=== PATIENT | male | born 1970 | race Caucasian/White ===

== ENCOUNTER 2018-07-19 12:11 | Inpatient (IN) | payer OTHER ==
[2018-07-19 14:07] VITALS: BMI 19.8
--- NOTE | 2018-07-19 16:09 | HP ---
CIWA Score - Admission Criteria OASAS Guidelines: Admission for Medically Managed Detox: Requires at least one of the followin. CIWA greater than 12 2. Seizures within the past 24 hours 3. Delirium tremens within the past 24 hours 4. Hallucinations within the past 24 hours 5. Acute intervention needed for co occurring medical disorder 6. Acute intervention needed for co occurring psychiatric disorder 7. Severe withdrawal that cannot be handled at a lower level of care (continued vomiting, continued diarrhea, abnormal vital signs) requiring intravenous medication and/or fluids 8. Admission ROS S - HPI Chief Complaint: Here for a rehab admission- left detox hospital in [place] after a stay of 7 days when he got tapering doses of methadone and librium. Was transferred here directly from detox. Pt without medical problems and does not take any medications. Smokes a pack per day. In past was on Abilify but has not taken for several weeks. 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 Uses 10 bags/day of injecting heroin and 3-4 pints of vodka a day. Has been on Suboxone occasionally does like this, prefers methadone. Would like to be in a methadone program Urine tox: pos for benzo and THC (from before admission to detox) ISTOP/DUR: shows Buprenorphine SL 8mg on 06/09/18: 14 pills and suboxone 15 pills on 05/02/18 Allergies/Adverse Reactions: Allergies Allergy/AdvReac Type Severity Reaction Status Date / Time No Known Allergies Allergy Verified 07/19/18 15:32 - Ebola screening Have you traveled outside of the country in the last 21 days: No Have you had contact with anyone from an Ebola affected area: No Have you been sick,other than usual withdrawal symptoms: No Do you have a fever: No Patient History - Patient Medical History Hx Asthma: No Hx Chronic Obstructive Pulmonary Disease (COPD): No Hx Cardiac Disorders: No Hx Hypertension: No Hx Hypercholesterolemia: No Hx Pacemaker: No HX Cerebrovascular Accident: No Hx Seizures: No Hx Dementia: No Hx Diabetes: No Hx Gastrointestinal Disorders: No Hx Liver Disease: No Hx Genitourinary Disorders: No Hx Sexually Transmitted Disorders: No Hx Renal Disease (ESRD): No Hx Thyroid Disease: No Hx Human Immunodeficiency Virus (HIV): No Hx Hepatitis C: No Hx Depression: No Hx Suicide Attempt: No Hx Bipolar Disorder: No Hx Schizophrenia: No - Patient Surgical History Past Surgical History: Yes Hx Neurologic Surgery: No Hx Cataract Extraction: No Hx Cardiac Surgery: No Hx Lung Surgery: No Hx Breast Surgery: No Hx Breast Biopsy: No Hx Abdominal Surgery: No Hx Appendectomy: No Hx Cholecystectomy: No Hx Genitourinary Surgery: No Hx Section: Yes (LEFT HIP REPLACEMENT) Hx Orthopedic Surgery: No Anesthesia Reaction: No - PPD History Previous Implant?: No Implanted On Prior [facility] Admission?: No - Reproductive History Patient : No - Smoking Cessation Smoking history: Former smoker Have you smoked in the past 12 months: Yes Aproximately how many cigarettes per day: 20 Hx Chewing Tobacco Use: No Initiated information on smoking cessation: Yes 'Breaking Loose' booklet given: 07/19/18 - Substance & Tx. History Hx Alcohol Use: Yes (3-4 pints of vodka a day) Hx Substance Use: Yes (10 bags IV heroin) Substance Use Type: Heroin Hx Substance Use Treatment: Yes (just completed detox) - Substances Abused Alcohol Route: Oral Frequency: Daily Amount used: 3-4 pints of vodka Age of first use: 12 Date of Last Use: 07/11/18 Heroin Route: Injection Frequency: Daily Amount used: 10 bags Age of first use: 24 Date of Last Use: 07/11/18 Family Disease History - Family Disease History Family History: Unable to Obtain Family Disease History: CA: Grandparent, Father Admission Physical Exam BHS - Vital Signs Vital Signs: Vital Signs - 24 hr 07/19/18 14:05 Temperature 98.4 F Pulse Rate 65 Respiratory 19 Rate Blood Pressure 99/67 BHS Breath Alcohol Content Breath Alcohol Content: 0 Urine Drug Screen - Results Drug Screen Negative: No Urine Drug Screen Results: THC-Marijuana, BZO-Benzodiazepines Inpatient Rehab Admission - Initial Determination Are CD services needed?: Yes Free of communicable disease: Yes Not in need of hospitalization: Yes - Rehab Admission Criteria Previous failed treatment: Yes Poor recovery environment: Yes Comorbidities: Yes Lacks judgement: No Patient is meeting Inpatient Rehab admission criteria:: Yes
[2018-07-19] MEDS ORDERED: LOPERAMIDE HCL 2 MG CAPSULE PO PRN (16:34)
[2018-07-19] MEDS ORDERED: MENTHOL/PHENOL 1 EACH UD MM PRN (16:34)
[2018-07-19] MEDS ORDERED: MAGNESIUM HYDROX 2400MG/30ML ORAL SUSPENSION 30 ML CUP PO PRN (16:34)
[2018-07-19] MEDS ORDERED: MAGNESIUM CITRATE 300 ML BOTTLE PO PRN (16:34)
[2018-07-19] MEDS ORDERED: P-EPHED 60MG/TRIPROLIDI 2.5MG TABLET PO PRN (16:34)
[2018-07-19] MEDS ORDERED: guaiFENesin/D-METHORPHAN HB 10 ML UNIT-DOSE CUPS PO PRN (16:34)
[2018-07-19] MEDS ORDERED: MAG HYDROX/AL HYDROX/SIMETH 30 ML UNIT-DOSE CUP PO PRN (16:34)
[2018-07-19] MEDS ORDERED: ACETAMINOPHEN 325 MG TABLET (FP) PO PRN (16:34)
[2018-07-19] MEDS ORDERED: TUBERCULIN PPD 5 TU/0.1ML VIAL ID ONE (18:49)
[2018-07-19] MEDS: THIAMINE HCL 100 MG TABLET (FP) PO SCH (21:40)
[2018-07-19] MEDS: MELATONIN 5 MG TABLETS PO PRN (21:40)
[2018-07-19 22:23] LABS: URINE APPEARANCE CLEAR; URINE BILIRUBIN NEGATIVE (<2.0 mg/dL); URINE COLOR LTYELLOW; URINE GLUCOSE (UA) NEGATIVE (NEGATIVE); URINE KETONE NEGATIVE (NEGATIVE); URINE LEUK ESTERASE NEGATIVE (NEGATIVE); URINE NITRITE NEGATIVE (NEGATIVE); URINE PROTEIN NEGATIVE (NEGATIVE); URINE UROBILINOGEN NEGATIVE mg/dL (0.2-1.0)
--- NOTE | 2018-07-20 08:17 | HP ---
Psychiatrist Admission - Data Date of interview: 07/20/18 Admission source: [facility] detox Identifying data: This is the first [facility] admission for this 48 years old male, unemployed on SSD, homeless Medical History: Significant for history orthosurgery for left hip replacement. Denies having psoriasis or colon resection for colon cancer as reported on [facility] nursing note. Smokes cigarettes 1 ppd Psychiatric History: Initially denies history of previous psychiatric treatment. However upon confrontation with information viewed in [facility] history & physical "in the past was on Abilify but has not taken it for weeks", he admitted that he received psychiatric outpatient treatment at [facility] in 2012, was diagnosed with Bipolar Disorder and he was treated with Abilify 10 mg/day. Told bond writer that he took medication for a few months. He is unwilling to resume taking that medication or be on other psychotropic medication at this time. Denies previous psychiatric hospitalization or suicidal attempt. At present, patient is highly irritable, hostile and reports sleeping poorly Physical/Sexual Abuse/Trauma History: Denies history of emotional, physical or sexual abuse as well as DV relationship. No service Additional Comment: Reports history of one previous misdemeanor arrests. No probation currently Vital Signs: Vital Signs - 24 hr 07/19/18 07/19/18 07/20/18 14:05 22:56 01:36 Temperature 98.4 F 97.6 F Pulse Rate 65 76 Respiratory 19 16 18 Rate Blood Pressure 99/67 102/67 07/20/18 07/20/18 03:30 07:25 Temperature 97.2 F L Pulse Rate 70 Respiratory 18 18 Rate Blood Pressure 112/75 Allergies/Adverse Reactions: Allergies Allergy/AdvReac Type Severity Reaction Status Date / Time No Known Allergies Allergy Verified 07/19/18 15:32 Date of last physical exam: 07/19/18 Concur with the findings of this exam: Yes - Substance Abuse/Tx History Hx Alcohol Use: Yes Hx Substance Use: Yes Substance Use Type: Alcohol (Started using heroin at age 12, consumes 3-4 pints of vodka daily. Last drank on 07/11/18), Heroin (Started using heroin at age 24, consumes 10 bags daily. Last used on 07/11/18) Hx Substance Use Treatment: Yes (3 previous inpt detox & 2 inpt rehab admissions ) Mental Status Exam - Mental Status Exam Alert and Oriented to: Time, Place, Person Cognitive Function: Fair Patient Appearance: Well Groomed Mood: Irritable (highly) Affect: Appropriate Patient Behavior: Cooperative (superficially) Speech Pattern: Clear Voice Loudness: Normal Thought Process: Intact Thought Disorder: Not Present Hallucinations: Denies Suicidal Ideation: Denies Homicidal Ideation: Denies Insight/Judgement: Fair Sleep: Poorly Appetite: Good Muscle strength/Tone: Normal Gait/Station: Normal Psychiatric Findings - Problem List ([place] 1, 2,3) (1) Alcohol dependence Current Visit: Yes Status: Acute (2) Opioid dependence Current Visit: Yes Status: Acute (3) Nicotine dependence Current Visit: Yes Status: Chronic (4) Mood disorder Current Visit: Yes Status: Chronic (5) Bipolar disorder Current Visit: Yes Status: Ruled-out (6) Substance induced mood disorder Current Visit: Yes Status: Acute (7) Substance-induced sleep disorder Current Visit: Yes Status: Acute - Initial Treatment Plan Initial Treatment Plan: 1) Start Melatonin 10 mg po HS prn for insomnia. 2) Monitor progress
--- NOTE | 2018-07-20 08:55 | EKG ---
Test Reason : Blood Pressure : / mmHG Vent. Rate : 062 BPM Atrial Rate : 062 BPM P-R Int : 106 ms QRS Dur : 088 ms QT Int : 428 ms P-R-T Axes : 069 079 059 degrees QTc Int : 434 ms SINUS RHYTHM WITH SHORT SD NO PREVIOUS ECGS AVAILABLE Confirmed by JUN RAMIREZ MD ([id number]) on 07/20/2018 8:54:53 AM Referred By: Confirmed By:JUN RAMIREZ MD
[2018-07-20 10:04] LABS: HEMOGLOBIN 12.9 GM/dL (11.7-16.9); MCH 27.4 pg (25.7-33.7); MCHC 31.4 g/dl (32.0-35.9); MEAN CELL VOLUME 87.5 fl (80-96); MEAN PLT VOLUME 8.3 fl (7.5-11.1); PLATELET COUNT 267 K/MM3 (134-434); RBC 4.69 M/mm3 (4.00-5.60); RDW 16.8 % (11.9-15.9); WHITE BLOOD COUNT 10.4 K/mm3 (4.0-10.0)
[2018-07-20 10:37] LABS: ALK PHOS 90 U/L (45-117); ANION GAP 9 MMOL/L (8-16); BILIRUBIN,TOTAL 0.3 mg/dL (0.2-1); BLOOD UREA NITROGEN 17 mg/dL (7-18); CALCIUM 8.4 mg/dL (8.5-10.1); CHLORIDE 107 mmol/L (98-107); CO2 23 mmol/L (21-32); CREATININE 0.9 mg/dL (0.55-1.3); GLUCOSE,RANDOM 161 mg/dL (74-106); POTASSIUM 3.7 mmol/L (3.5-5.1); SGOT/AST 50 U/L (15-37); SGPT/ALT 78 U/L (13-61); SODIUM 139 mmol/L (136-145); TOT PROT 6.7 g/dl (6.4-8.2)
[2018-07-20] MEDS: PRENATAL VITAMINS W/ FOLIC ACID TABLET (FP) PO SCH (10:53)
[2018-07-20] MEDS: NICOTINE 21 MG/24 HOURS TOPICAL PATCH TD SCH (10:53)
--- NOTE | 2018-07-20 14:34 | HP ---
COWS - Scale Resting Pulse: 0= [place] 80 or Below Sweatin= Chills/Flushing Restless Observation: 0= Sits Still Pupil Size: 0= Normal to Room Light Bone or Joint Aches: 4=Acute Joint/Muscle Pain Runny Nose/ Eye Tearin= Runny Nose/Eyes GI Upset > 30mins: 0= None Tremor Observation: 1= Tremor [place], Not Seen Yawning Observation: 1= 1-2x During Session Anxiety or Irritability: 1=Feels Anxious/Irritable Goose Flesh Skin: 0=Smooth Skin COWS Score: 10 CIWA Score - Admission Criteria OASAS Guidelines: Admission for Medically Managed Detox: Requires at least one of the followin. CIWA greater than 12 2. Seizures within the past 24 hours 3. Delirium tremens within the past 24 hours 4. Hallucinations within the past 24 hours 5. Acute intervention needed for co occurring medical disorder 6. Acute intervention needed for co occurring psychiatric disorder 7. Severe withdrawal that cannot be handled at a lower level of care (continued vomiting, continued diarrhea, abnormal vital signs) requiring intravenous medication and/or fluids 8. Admission ROS [facility] Chief Complaint: PT REQUESTING FOR SUBOXONE MAINTENANCE TREATMENT. Allergies/Adverse Reactions: Allergies Allergy/AdvReac Type Severity Reaction Status Date / Time No Known Allergies Allergy Verified 07/19/18 15:32 History of Present Illness: 48 Y/O MALE WITH A HX OF ALCOHOL, HEROIN AND MARIJUANA DEPENDENCE SEEKING SUBOXONE TX. PT HAS PREVIOUS EXPERIENCE WITH SUBOXONE TREATMENT, LAST POSTING ON ISTOP WAS ON 06/09/18 AND PT CONFIRMED AFTER WHICH PT REPORTS HE RELAPSED. PT REPORTS HE USED TO RECIEVE SUBOXONE TREATMENT WITH THE SNF IN [place], [place]. PT WILL LIKE TO GET BACK ON IT AND REFERRED BACK TO THE PROGRAM. (SEE PMHx,PPSYCHx AND SXHx SECTIONS HERE). PT DENIES PMHx AND PSYCHx. REPORTS LEFT HIP REPLACEMENT IN 2014. PT WAS ADMITTED TO REHAB YESTERDAY AFTER DETOXING AT [facility] AND DISCHARGED YESTERDAY. LAST DOSED WITH 5 MG OF METHADONE ON . - Ebola screening Have you traveled outside of the country in the last 21 days: No Have you had contact with anyone from an Ebola affected area: No Have you been sick,other than usual withdrawal symptoms: No Do you have a fever: No - Review of Systems Constitutional: Chills, Diaphoresis Musculoskeletal: reports: Muscle Pain Patient History - Patient Medical History Hx Anemia: No Hx Asthma: No Hx Chronic Obstructive Pulmonary Disease (COPD): No Hx Cardiac Disorders: No Hx Hypertension: No Hx Hypercholesterolemia: No Hx Pacemaker: No HX Cerebrovascular Accident: No Hx Seizures: No Hx Dementia: No Hx Diabetes: No Hx Gastrointestinal Disorders: No Hx Liver Disease: No Hx Genitourinary Disorders: No Hx Sexually Transmitted Disorders: No Hx Renal Disease (ESRD): No Hx Thyroid Disease: No Hx Human Immunodeficiency Virus (HIV): No Hx Hepatitis C: No Hx Depression: No Hx Suicide Attempt: No Hx Bipolar Disorder: No Hx Schizophrenia: No - Patient Surgical History Past Surgical History: Yes Hx Neurologic Surgery: No Hx Cataract Extraction: No Hx Cardiac Surgery: No Hx Lung Surgery: No Hx Breast Surgery: No Hx Breast Biopsy: No Hx Abdominal Surgery: No Hx Appendectomy: No Hx Cholecystectomy: No Hx Genitourinary Surgery: No Hx Section: Yes (LEFT HIP REPLACEMENT) Hx Orthopedic Surgery: No Anesthesia Reaction: No - PPD History Previous Implant?: No Implanted On Prior [facility] Admission?: No Date: 07/21/18 - Reproductive History Patient : No - Smoking Cessation Smoking history: Former smoker Have you smoked in the past 12 months: Yes Aproximately how many cigarettes per day: 20 Hx Chewing Tobacco Use: No Initiated information on smoking cessation: Yes - Substance & Tx. History Hx Alcohol Use: Yes Hx Substance Use: Yes Substance Use Type: Alcohol, Heroin, Marijuana Hx Substance Use Treatment: Yes ([facility]) - Substances Abused Alcohol Route: Oral Frequency: Daily Amount used: 3-4 pints of vodka Age of first use: 12 Date of Last Use: 07/11/18 Heroin Route: Injection Frequency: Daily Amount used: 10 bags Age of first use: 24 Date of Last Use: 07/11/18 Family Disease History - Family Disease History Family Disease History: CA: Grandparent, Father Admission Physical Exam BHS - Vital Signs Vital Signs: Vital Signs - 24 hr 07/19/18 07/20/18 07/20/18 22:56 01:36 03:30 Temperature 97.6 F Pulse Rate 76 Respiratory 16 18 18 Rate Blood Pressure 102/67 07/20/18 07:25 Temperature 97.2 F L Pulse Rate 70 Respiratory 18 Rate Blood Pressure 112/75 - Physical General Appearance: Yes: Irritable, Anxious HEENTM: Yes: EOMI, ULISES Neurological: Yes: Fully Oriented, Alert - Addiitonal Findings: START ON SUBOXONE 4 MG/1 MG SL TODAY RE-EVALUATE IF PER PATIENT SYMPTOMS BHS Breath Alcohol Content Breath Alcohol Content: 0 Urine Drug Screen - Results Drug Screen Negative: No Urine Drug Screen Results: THC-Marijuana, BZO-Benzodiazepines
[2018-07-20] MEDS: BUPRENORPHINE/NALOXONE 2 MG/0.5 MG FILM PACKET SL SCH (15:05)
[2018-07-20] MEDS: MELATONIN 5 MG TABLETS PO PRN (21:38)
[2018-07-20] MEDS: THIAMINE HCL 100 MG TABLET (FP) PO SCH (21:38)
[2018-07-21] MEDS: BUPRENORPHINE/NALOXONE 2 MG/0.5 MG FILM PACKET SL SCH (09:56)
[2018-07-21] MEDS: NICOTINE 21 MG/24 HOURS TOPICAL PATCH TD SCH (09:56)
[2018-07-21] MEDS: PRENATAL VITAMINS W/ FOLIC ACID TABLET (FP) PO SCH (09:56)
[2018-07-21] MEDS: NICOTINE POLACRILEX 2 MG GUM BUC PRN (12:24)
[2018-07-21] MEDS: MELATONIN 5 MG TABLETS PO PRN (21:31)
[2018-07-21] MEDS: THIAMINE HCL 100 MG TABLET (FP) PO SCH (21:31)
[2018-07-21] MEDS: IBUPROFEN 400 MG TABLET (FP) PO PRN (21:32)
[2018-07-22] MEDS: BUPRENORPHINE/NALOXONE 2 MG/0.5 MG FILM PACKET SL SCH (10:00)
[2018-07-22] MEDS: NICOTINE 21 MG/24 HOURS TOPICAL PATCH TD SCH (10:01)
[2018-07-22] MEDS: PRENATAL VITAMINS W/ FOLIC ACID TABLET (FP) PO SCH (10:02)
[2018-07-22] MEDS: NICOTINE POLACRILEX 2 MG GUM BUC PRN (10:08)
[2018-07-22] MEDS: THIAMINE HCL 100 MG TABLET (FP) PO SCH (21:35)
[2018-07-22] MEDS: MELATONIN 5 MG TABLETS PO PRN (21:35)
[2018-07-22] MEDS: IBUPROFEN 400 MG TABLET (FP) PO PRN (21:36)
[2018-07-23] MEDS: NICOTINE 21 MG/24 HOURS TOPICAL PATCH TD SCH (11:24)
[2018-07-23] MEDS: PRENATAL VITAMINS W/ FOLIC ACID TABLET (FP) PO SCH (11:25)
[2018-07-23] MEDS: BUPRENORPHINE/NALOXONE 2 MG/0.5 MG FILM PACKET SL SCH (11:25)
[2018-07-23] MEDS: NICOTINE POLACRILEX 2 MG GUM BUC PRN (12:22)
[2018-07-23] MEDS: THIAMINE HCL 100 MG TABLET (FP) PO SCH (21:45)
[2018-07-24 06:58] VITALS: BP 125/65; PULSE 68; TEMP 98.6
[2018-07-24] MEDS ORDERED: BUPRENORPHINE/NALOXONE 2 MG/0.5 MG FILM PACKET SL ONE (11:05)
[2018-07-24] MEDS ORDERED: BUPRENORPHINE/NALOXONE 8 MG/2 MG FILM PACKET SL ONE (11:40)
[2018-07-24] MEDS: PRENATAL VITAMINS W/ FOLIC ACID TABLET (FP) PO SCH (11:54)
[2018-07-24] MEDS: NICOTINE 21 MG/24 HOURS TOPICAL PATCH TD SCH (11:54)
[2018-07-24] MEDS: BUPRENORPHINE/NALOXONE 2 MG/0.5 MG FILM PACKET SL SCH (11:58)
[2018-07-24] MEDS: NICOTINE POLACRILEX 2 MG GUM BUC PRN (11:58)
--- NOTE | 2018-07-24 14:50 | PN ---
[facility] Note: PT DECLINED TO CONTINUE WITH REHAB FOR PERSONAL REASONS STATING "I'M NOT FEELING IT HERE". PT STATES HE IS GOING BACK TO HIS PROVIDER AT THE [facility] , DION FISHMAN AT [address] [place] [address]. PT WILL BE DISCHARGED WITH SUBOXONE 8 MG/2 MG SL DAILY #7 TO BE PICKED UP FROM [facility]. PT IS ALERT O X 3. NAD. Vital Signs 07/24/18 06:58 Temperature 98.6 F Pulse Rate 68 Respiratory 16 Rate Blood Pressure 125/65 Laboratory Tests 07/19/18 07/20/18 07/20/18 20:40 07:00 07:00 WBC 10.4 H RBC 4.69 Hgb 12.9 Hct 41.0 MCV 87.5 MCH 27.4 MCHC 31.4 L RDW 16.8 H Plt Count 267 MPV 8.3 Sodium 139 Potassium 3.7 Chloride 107 Carbon Dioxide 23 Anion Gap 9 BUN 17 Creatinine 0.9 Creat Clearance w eGFR > 60 POC Glucometer Random Glucose 161 H Calcium 8.4 L Total Bilirubin 0.3 AST 50 H ALT 78 H Alkaline Phosphatase 90 Total Protein 6.7 Albumin 3.0 L Urine Color Ltyellow Urine Appearance Clear Urine pH 8.0 Ur Specific [place] 1.013 Urine Protein Negative Urine Glucose (UA) Negative Urine Ketones Negative Urine Blood Negative Urine Nitrite Negative Urine Bilirubin Negative Urine Urobilinogen Negative Ur Leukocyte Esterase Negative RPR Titer 07/20/18 07/24/18 07:00 07:06 WBC RBC Hgb Hct MCV MCH MCHC RDW Plt Count MPV Sodium Potassium Chloride Carbon Dioxide Anion Gap BUN Creatinine Creat Clearance w eGFR POC Glucometer 107 Random Glucose Calcium Total Bilirubin AST ALT Alkaline Phosphatase Total Protein Albumin Urine Color Urine Appearance Urine pH Ur Specific [place] Urine Protein Urine Glucose (UA) Urine Ketones Urine Blood Urine Nitrite Urine Bilirubin Urine Urobilinogen Ur Leukocyte Esterase RPR Titer Nonreactive NAD PLAN:FOLLOW UP WITH JOY FERRARA FOR SUBOXONE MAINTENANCE FOLLOW UP WITH AFTERCARE PLANNED WITH YOUR COUNSELOR.
[2018-07-25] MEDS ORDERED: BUPRENORPHINE/NALOXONE 8 MG/2 MG FILM PACKET SL SCH (10:00)
== END 2018-07-24 15:10 | disposition left against medical advice (07) | DRG 894 ==
LOC: YASAS 12:11 → Y5N 17:20
PROVIDERS: ADMIT Psychiatry & Neurology Psychiatry; ATTEND Psychiatry & Neurology Psychiatry
PROC: HZ42ZZZ Group Counseling for Substance Abuse Treatment, Cognitive-Behavioral (ICD-10-PCS; principal; 2018-07-19)
DX: F11.20 Opioid dependence, uncomplicated (principal); F19.282 Other psychoactive substance dependence with psychoactive substance-induced sleep disorder; F10.20 Alcohol dependence, uncomplicated; F17.210 Nicotine dependence, cigarettes, uncomplicated; F39 Unspecified mood [affective] disorder; F31.9 Bipolar disorder, unspecified; F19.24 Other psychoactive substance dependence with psychoactive substance-induced mood disorder; Z96.642 Presence of left artificial hip joint
CPT/HCPCS: 36415; 80053; 81003; 82962; 85027; 86593; 93005; 93010

== ENCOUNTER 2019-07-09 19:30 | Inpatient (IN) | payer OTHER ==
[2019-07-09 22:29] VITALS: BMI 20.9
--- NOTE | 2019-07-09 23:05 | HP ---
COWS - Scale Resting Pulse: 0= [place] 80 or Below Sweatin= Beads of Sweat on Face Restless Observation: 1= Difficult to Sit Still Pupil Size: 1= Pupils >than Normal Bone or Joint Aches: 2= Severe Diffuse Aches Runny Nose/ Eye Tearin= Runny Nose/Eyes GI Upset > 30mins: 1= Stomach Cramp Tremor Observation: 4= Gross Tremor/Twitching Yawning Observation: 1= 1-2x During Session Anxiety or Irritability: 2=Irritable/Anxious Goose Flesh Skin: 3=Piloerection COWS Score: 20 CIWA Score - Admission Criteria OASAS Guidelines: Admission for Medically Managed Detox: Requires at least one of the followin. CIWA greater than 12 2. Seizures within the past 24 hours 3. Delirium tremens within the past 24 hours 4. Hallucinations within the past 24 hours 5. Acute intervention needed for co occurring medical disorder 6. Acute intervention needed for co occurring psychiatric disorder 7. Severe withdrawal that cannot be handled at a lower level of care (continued vomiting, continued diarrhea, abnormal vital signs) requiring intravenous medication and/or fluids 8. Admitting History and Physical - Smoking History Smoking history: Current every day smoker Have you smoked in the past 12 months: Yes Aproximately how many cigarettes per day: 20 - Alcohol/Substance Use Hx Alcohol Use: Yes Admission ROS [facility] - [facility] Chief Complaint: Heroin withdrawal symptoms Allergies/Adverse Reactions: Allergies Allergy/AdvReac Type Severity Reaction Status Date / Time No Known Allergies Allergy Verified 07/19/18 15:32 History of Present Illness: 49 years old with 26 years of heroin dependence is seeking admission to detox. Patient is in active withdrawal and denies medical history and suicidal ideation at this time. Exam Limitations: No Limitations, Clinical Condition - Ebola screening Have you traveled outside of the country in the last 21 days: No (N) Have you had contact with anyone from an Ebola affected area: No Do you have a fever: No - Review of Systems Constitutional: Chills, Malaise, Changes in sleep, Weakness EENT: reports: Sinus Pressure Respiratory: reports: No Symptoms reported Cardiac: reports: No Symptoms Reported GI: reports: Poor Appetite, Poor Fluid Intake, Abdominal cramping : reports: No Symptoms Reported Musculoskeletal: reports: Back Pain, Joint Pain, Muscle Pain, Muscle Weakness, Other (hip pain) Integumentary: reports: Dryness, Flushing Neuro: reports: Headache, Tingling, Tremors Endocrine: reports: Excessive Sweating, Flushing Hematology: reports: No Symptoms Reported Psychiatric: reports: Judgement Intact, Mood/Affect Appropiate, Orientated x3, Anxious Other Systems: Reviewed and Negative Patient History - Patient Medical History Hx Anemia: No Hx Asthma: No Hx Chronic Obstructive Pulmonary Disease (COPD): No Hx Cardiac Disorders: No Hx Hypertension: No Hx Hypercholesterolemia: No Hx Pacemaker: No HX Cerebrovascular Accident: No Hx Seizures: No Hx Dementia: No Hx Diabetes: No Hx Gastrointestinal Disorders: No Hx Liver Disease: No Hx Genitourinary Disorders: No Hx Sexually Transmitted Disorders: No Hx Renal Disease (ESRD): No Hx Thyroid Disease: No Hx Human Immunodeficiency Virus (HIV): No Hx Hepatitis C: No Hx Depression: No Hx Suicide Attempt: No Hx Bipolar Disorder: No Hx Schizophrenia: No - Patient Surgical History Past Surgical History: Yes Hx Neurologic Surgery: No Hx Cataract Extraction: No Hx Cardiac Surgery: No Hx Lung Surgery: No Hx Breast Surgery: No Hx Breast Biopsy: No Hx Abdominal Surgery: No Hx Appendectomy: No Hx Cholecystectomy: No Hx Genitourinary Surgery: No Hx Section: Yes (LEFT HIP REPLACEMENT) Hx Orthopedic Surgery: No Anesthesia Reaction: No - PPD History Previous Implant?: Yes Documented Results: Positive w/proof Implanted On Prior [facility] Admission?: Yes Date: 07/21/18 - Reproductive History Patient is a Female of Child Bearing Age (11 -55 yrs old): No (male) - Smoking Cessation Smoking history: Current every day smoker Have you smoked in the past 12 months: Yes Aproximately how many cigarettes per day: 20 Hx Chewing Tobacco Use: No Initiated information on smoking cessation: Yes 'Breaking Loose' booklet given: 07/09/19 - Substance & Tx. History Hx Alcohol Use: Yes Hx Substance Use: Yes Substance Use Type: Alcohol, Cocaine, Heroin, Marijuana, Opiates Hx Substance Use Treatment: Yes ([facility]) - Substances abused Heroin Substance route: Injection Frequency: Daily Amount used: 2 bundles Age of first use: 23 Date of last use: 07/09/19 Alcohol Substance route: Oral Frequency: Daily Amount used: couple of pints of vodka,12 beers. Age of first use: 12 Date of last use: 07/09/19 Alprazolam (Xanax) Substance route: Oral Frequency: Daily Amount used: 2 0f 2 mg Age of first use: 28 Date of last use: 07/05/19 Admission Physical Exam [facility] - Vital Signs Vital Signs: Vital Signs - 24 hr 07/09/19 22:17 Temperature 97.3 F L Pulse Rate 79 Respiratory 16 Rate Blood Pressure 128/84 - Physical General Appearance: Yes: Within Normal Limits, Disheveled HEENTM: Yes: Within Normal Limits, EOMI, Normal ENT Inspection, Normocephalic, Normal Voice, ULISES Respiratory: Yes: Lungs Clear, Normal Breath Sounds, No Respiratory Distress Neck: Yes: Within Normal Limits, Supple, Trachea in good position Breast: Yes: Within Normal Limits Cardiology: Yes: Regular Rhythm, Regular Rate Genitourinary: Yes: Within Normal Limits Back: Yes: Normal Inspection Musculoskeletal: Yes: Back pain Extremities: Yes: Tremors Neurological: Yes: licensing court magistrate II-XII NML intact, Fully Oriented, Motor Strength 5/5 Integumentary: Yes: Warm Lymphatic: Yes: Within Normal Limits - Diagnostic (1) Opioid dependence with withdrawal Current Visit: Yes Status: Acute (2) Nicotine dependence Status: Chronic Qualifiers: Nicotine product type: cigarettes Substance use status: in withdrawal Qualified Code(s): F17.213 - Nicotine dependence, cigarettes, with withdrawal Cleared for Admission [facility] - Detox or Rehab [facility] Level of Care: Medically Managed Detox Regimen/Protocol: Methadone Claeared for Rehab Admission: No Breathalyzer - Breathalyzer Breathalyzer: 0 Urine Drug Screen - Test Device Lot number: [id number] Expiration date: 03/03/21 - Control Is test valid?: Yes - Results Drug screen NEGATIVE: No Urine drug screen results: THC-Marijuana, TONI-Cocaine, FEN-Fentanyl, MOP-Opiates , OXY-Oxycodone, MTD-Methadone, BUP-Suboxone Inpatient Rehab Admission - Rehab Decision to Admit Inpatient rehab admission?: No
[2019-07-09] MEDS ORDERED: MAGNESIUM HYDROX 2400MG/30ML ORAL SUSPENSION 30 ML CUP PO PRN (23:10)
[2019-07-09] MEDS ORDERED: MAG HYDROX/AL HYDROX/SIMETH 30 ML UNIT-DOSE CUP PO PRN (23:10)
[2019-07-09] MEDS ORDERED: ACETAMINOPHEN 325 MG TABLET (FP) PO PRN ×2 (23:10)
[2019-07-09] MEDS ORDERED: cloNIDine HCL 0.1 MG TABLET PO PRN (23:10)
[2019-07-09] MEDS ORDERED: MENTHOL/PHENOL 1 EACH UD MM PRN (23:10)
[2019-07-09] MEDS ORDERED: MAGNESIUM CITRATE 300 ML BOTTLE PO PRN (23:10)
[2019-07-09] MEDS ORDERED: BISMUTH SUBSALICYLATE 524 MG/30 ML UD PO PRN (23:10)
[2019-07-09] MEDS ORDERED: IBUPROFEN 400 MG TABLET (FP) PO PRN (23:10)
[2019-07-09] MEDS ORDERED: METHADONE HCL 10 MG TABLET (FOR DETOX USE ONLY) PO ONE (23:58)
[2019-07-10] MEDS: hydrOXYzine PAMOATE 25 MG CAPSULE (FP) PO PRN (08:12)
[2019-07-10] MEDS ORDERED: METHADONE HCL 10 MG TABLET (FOR DETOX USE ONLY) ONE (09:19)
[2019-07-10] MEDS ORDERED: METHADONE HCL 5 MG TABLET (FOR DETOX USE ONLY) ONE (09:20)
--- NOTE | 2019-07-10 09:29 | PN ---
BHS COWS - Scale Resting Pulse: 0= [place] 80 or Below Sweatin= Chills/Flushing Restless Observation: 1= Difficult to Sit Still Pupil Size: 1= Pupils >than Normal Bone or Joint Aches: 2= Severe Diffuse Aches Runny Nose/ Eye Tearin= Runny Nose/Eyes GI Upset > 30mins: 2= Nausea/Diarrhea Tremor Observation of Outstretched Hands: 2= Slight Tremor Visible Yawning Observation: 2= >3x During Session Anxiety or Irritability: 2=Irritable/Anxious Goose Flesh Skin: 3=Piloerection COWS Score: 18 BHS Progress Note (SOAP) Subjective: 49 years old male admitted on 07/09/19 for opiate withdrawal sx management treated with methadone detox regimen patient report taking banzo daily additional valium 10 mg prn adjacent to methadone detox discuss medication assisted treatment program 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
[2019-07-10] MEDS ORDERED: METHADONE (DETOX) 20 MG, METHADONE (DETOX) 5 MG PO ONE (10:00)
[2019-07-10] MEDS: NICOTINE 21 MG/24 HOURS TOPICAL PATCH TD SCH (10:24)
[2019-07-10] MEDS: METHOCARBAMOL 500 MG TABLET PO PRN ×2 (10:25→22:13)
[2019-07-10] MEDS: PRENATAL VITAMINS W/ FOLIC ACID TABLET (FP) PO SCH (10:26)
[2019-07-10 12:47] LABS: HEMATOCRIT 39.4 % (35.4-49); HEMOGLOBIN 13.3 GM/dL (11.7-16.9); MCH 31.5 pg (25.7-33.7); MCHC 33.8 g/dl (32.0-35.9); MEAN CELL VOLUME 93.3 fl (80-96); MEAN PLT VOLUME 8.5 fl (7.5-11.1); PLATELET COUNT 274 K/MM3 (134-434); RBC 4.22 M/mm3 (4.00-5.60); RDW 14.5 % (11.9-15.9)
[2019-07-10 13:03] LABS: ALBUMIN 3.3 g/dl (3.4-5.0); BILIRUBIN,TOTAL 0.4 mg/dL (0.2-1); CALCIUM 8.9 mg/dL (8.5-10.1); CREATININE 0.9 mg/dL (0.55-1.3); POTASSIUM 4.5 mmol/L (3.5-5.1); TOT PROT 6.8 g/dl (6.4-8.2)
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
[2019-07-10] MEDS: diazePAM 5 MG TABLET PO PRN ×2 (17:12→22:14)
[2019-07-10] MEDS: THIAMINE HCL 100 MG TABLET (FP) PO SCH (22:13)
[2019-07-10] MEDS: MELATONIN 5 MG TABLETS PO PRN (22:14)
[2019-07-11] MEDS ORDERED: METHADONE HCL 10 MG TABLET (FOR DETOX USE ONLY) PO ONE (10:00)
[2019-07-11] MEDS: ARIPiprazole 5 MG TABLET (FP) PO SCH (10:17)
[2019-07-11] MEDS: PRENATAL VITAMINS W/ FOLIC ACID TABLET (FP) PO SCH (10:17)
[2019-07-11] MEDS: NICOTINE 21 MG/24 HOURS TOPICAL PATCH TD SCH (10:18)
[2019-07-11] MEDS: CITALOPRAM HYDROBROMIDE 10 MG TABLET (FP) PO SCH (10:18)
[2019-07-11] MEDS: diazePAM 5 MG TABLET PO PRN ×3 (10:19→22:22)
[2019-07-11] MEDS ORDERED: METHOCARBAMOL 500 MG TABLET PO ONE (13:37)
[2019-07-11] MEDS ORDERED: hydrOXYzine PAMOATE 25 MG CAPSULE (FP) PO ONE (13:38)
--- NOTE | 2019-07-11 13:39 | PN ---
S COWS - Scale Resting Pulse: 0= [place] 80 or Below Sweatin= Chills/Flushing Restless Observation: 0= Sits Still Pupil Size: 1= Pupils >than Normal Bone or Joint Aches: 1= Mild Discomfort Runny Nose/ Eye Tearin= Nasal Congestion GI Upset > 30mins: 2= Nausea/Diarrhea Tremor Observation of Outstretched Hands: 2= Slight Tremor Visible Yawning Observation: 1= 1-2x During Session Anxiety or Irritability: 2=Irritable/Anxious Goose Flesh Skin: 3=Piloerection COWS Score: 14 BHS Progress Note (SOAP) Subjective: 49 years old male admitted on 07/09/19 for opiate withdrawal sx management treated with methadone detox regimen c/o muscle spasm robaxine 500 mg po x 1 c/o restlessness vistaril 25 mg po x 1 Objective: 07/11/19 13:41 Laboratory Last Values WBC 5.0 K/mm3 (4.0-10.0) 07/10/19 08:54 RBC 4.22 M/mm3 (4.00-5.60) 07/10/19 08:54 Hgb 13.3 GM/dL (11.7-16.9) 07/10/19 08:54 Hct 39.4 % (35.4-49) 07/10/19 08:54 MCV 93.3 fl (80-96) 07/10/19 08:54 MCH 31.5 pg (25.7-33.7) D 07/10/19 08:54 MCHC 33.8 g/dl (32.0-35.9) 07/10/19 08:54 RDW 14.5 % (11.9-15.9) D 07/10/19 08:54 Plt Count 274 K/MM3 (134-434) 07/10/19 08:54 MPV 8.5 fl (7.5-11.1) 07/10/19 08:54 Sodium 141 mmol/L (136-145) 07/10/19 08:54 Potassium 4.5 mmol/L (3.5-5.1) 07/10/19 08:54 Chloride 109 mmol/L (98-107) H 07/10/19 08:54 Carbon Dioxide 27 mmol/L (21-32) 07/10/19 08:54 Anion Gap 4 MMOL/L (8-16) L 07/10/19 08:54 BUN 14.0 mg/dL (7-18) 07/10/19 08:54 Creatinine 0.9 mg/dL (0.55-1.3) 07/10/19 08:54 Est GFR (CKD-EPI)AfAm 115.83 07/10/19 08:54 Est GFR (CKD-EPI)NonAf 99.94 07/10/19 08:54 Random Glucose 99 mg/dL (74-106) 07/10/19 08:54 Calcium 8.9 mg/dL (8.5-10.1) 07/10/19 08:54 Total Bilirubin 0.4 mg/dL (0.2-1) 07/10/19 08:54 AST 41 U/L (15-37) H 07/10/19 08:54 ALT 64 U/L (13-61) H 07/10/19 08:54 Alkaline Phosphatase 94 U/L (45-117) 07/10/19 08:54 Total Protein 6.8 g/dl (6.4-8.2) 07/10/19 08:54 Albumin 3.3 g/dl (3.4-5.0) L 07/10/19 08:54 RPR Titer Nonreactive (NONREACTIVE) 07/10/19 08:54 Vital Signs Temperature 97.3 F L 07/11/19 13:12 Pulse Rate 53 L 07/11/19 13:12 Respiratory Rate 18 07/11/19 13:12 Blood Pressure 103/61 07/11/19 13:12 O2 Sat by Pulse Oximetry (%) lab noted Assessment: 07/11/19 13:41 opiate withdrawal sx Plan: continue methadone detox regimen
[2019-07-11] MEDS: MELATONIN 5 MG TABLETS PO PRN (22:22)
[2019-07-11] MEDS: THIAMINE HCL 100 MG TABLET (FP) PO SCH (22:22)
[2019-07-11] MEDS: METHOCARBAMOL 500 MG TABLET PO PRN (22:22)
[2019-07-12] MEDS: diazePAM 5 MG TABLET PO PRN ×4 (03:17→21:41)
[2019-07-12] MEDS ORDERED: METHADONE HCL 5 MG TABLET (FOR DETOX USE ONLY) ONE (08:08)
[2019-07-12] MEDS ORDERED: METHADONE HCL 10 MG TABLET (FOR DETOX USE ONLY) ONE (08:08)
[2019-07-12] MEDS: PRENATAL VITAMINS W/ FOLIC ACID TABLET (FP) PO SCH (10:00)
[2019-07-12] MEDS: ARIPiprazole 5 MG TABLET (FP) PO SCH (10:00)
[2019-07-12] MEDS ORDERED: METHADONE (DETOX) 10 MG, METHADONE (DETOX) 5 MG PO ONE (10:00)
[2019-07-12] MEDS: CITALOPRAM HYDROBROMIDE 10 MG TABLET (FP) PO SCH (10:01)
[2019-07-12] MEDS: NICOTINE 21 MG/24 HOURS TOPICAL PATCH TD SCH (10:03)
--- NOTE | 2019-07-12 11:39 | PN ---
BHS COWS - Scale Resting Pulse: 0= [place] 80 or Below Sweatin= No chills or Flushing Restless Observation: 1= Difficult to Sit Still Pupil Size: 1= Pupils >than Normal Bone or Joint Aches: 1= Mild Discomfort Runny Nose/ Eye Tearin= Nasal Congestion GI Upset > 30mins: 1= Stomach Cramp Tremor Observation of Outstretched Hands: 1= Tremor [place], Not Seen Yawning Observation: 0= None Anxiety or Irritability: 1=Feels Anxious/Irritable Goose Flesh Skin: 0=Smooth Skin COWS Score: 7 BHS Progress Note (SOAP) Subjective: alert,irritable,anxious,interrupted sleep,pain in the body Objective: 07/12/19 11:38 Vital Signs Temperature 97.1 F L 07/12/19 09:21 Pulse Rate 60 07/12/19 09:21 Respiratory Rate 18 07/12/19 09:21 Blood Pressure 105/71 07/12/19 09:21 O2 Sat by Pulse Oximetry (%) Assessment: 07/12/19 11:38 withdrawal symptom Plan: continue detox methadone regimen
[2019-07-12] MEDS: NICOTINE POLACRILEX 2 MG GUM BUC PRN (12:20)
--- NOTE | 2019-07-12 13:37 | EKG ---
Test Reason : Blood Pressure : / mmHG Vent. Rate : 075 BPM Atrial Rate : 075 BPM P-R Int : 108 ms QRS Dur : 082 ms QT Int : 396 ms P-R-T Axes : 070 070 058 degrees QTc Int : 442 ms SINUS RHYTHM WITH MARKED SINUS ARRHYTHMIA WITH SHORT CT WHEN COMPARED WITH ECG OF 19-JUL-2018 19:24, NO SIGNIFICANT CHANGE WAS FOUND Confirmed by JUN RAMIREZ MD ([id number]) on 07/12/2019 1:37:19 PM Referred By: Victor Manuel Ayers Confirmed By:JUN RAMIREZ MD
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
[2019-07-12] MEDS: hydrOXYzine PAMOATE 25 MG CAPSULE (FP) PO PRN ×2 (15:08→21:42)
[2019-07-12] MEDS: METHOCARBAMOL 500 MG TABLET PO PRN ×2 (15:08→21:42)
[2019-07-12] MEDS: THIAMINE HCL 100 MG TABLET (FP) PO SCH (21:42)
[2019-07-13] MEDS: diazePAM 5 MG TABLET PO PRN ×2 (01:44→05:41)
[2019-07-13] MEDS: METHOCARBAMOL 500 MG TABLET PO PRN ×3 (05:41→22:18)
[2019-07-13] MEDS ORDERED: METHADONE HCL 10 MG TABLET (FOR DETOX USE ONLY) PO ONE (10:00)
[2019-07-13] MEDS: PRENATAL VITAMINS W/ FOLIC ACID TABLET (FP) PO SCH (10:22)
[2019-07-13] MEDS: CITALOPRAM HYDROBROMIDE 10 MG TABLET (FP) PO SCH (10:22)
[2019-07-13] MEDS: NICOTINE 21 MG/24 HOURS TOPICAL PATCH TD SCH (10:22)
[2019-07-13] MEDS: ARIPiprazole 5 MG TABLET (FP) PO SCH (10:22)
[2019-07-13] MEDS: hydrOXYzine PAMOATE 25 MG CAPSULE (FP) PO PRN ×2 (10:25→22:18)
--- NOTE | 2019-07-13 11:09 | PN ---
S COWS - Scale Resting Pulse: 0= [place] 80 or Below Sweatin= Chills/Flushing Restless Observation: 0= Sits Still Pupil Size: 0= Normal to Room Light Bone or Joint Aches: 0= None Runny Nose/ Eye Tearin= None GI Upset > 30mins: 0= None Tremor Observation of Outstretched Hands: 0= None Yawning Observation: 0= None Anxiety or Irritability: 2=Irritable/Anxious Goose Flesh Skin: 0=Smooth Skin COWS Score: 3 BHS Progress Note (SOAP) Subjective: c/o sweats and anxiety. Objective: 07/13/19 11:07 Vital Signs 07/13/19 07/13/19 06:06 09:27 Temperature 96.3 F L 96.2 F L Pulse Rate 61 62 Respiratory 16 18 Rate Blood Pressure 96/61 111/72 Lab Results WBC 5.0 K/mm3 (4.0-10.0) 07/10/19 08:54 RBC 4.22 M/mm3 (4.00-5.60) 07/10/19 08:54 Hgb 13.3 GM/dL (11.7-16.9) 07/10/19 08:54 Hct 39.4 % (35.4-49) 07/10/19 08:54 MCV 93.3 fl (80-96) 07/10/19 08:54 MCHC 33.8 g/dl (32.0-35.9) 07/10/19 08:54 RDW 14.5 % (11.9-15.9) D 07/10/19 08:54 Plt Count 274 K/MM3 (134-434) 07/10/19 08:54 Sodium 141 mmol/L (136-145) 07/10/19 08:54 Potassium 4.5 mmol/L (3.5-5.1) 07/10/19 08:54 Chloride 109 mmol/L (98-107) H 07/10/19 08:54 Carbon Dioxide 27 mmol/L (21-32) 07/10/19 08:54 Anion Gap 4 MMOL/L (8-16) L 07/10/19 08:54 BUN 14.0 mg/dL (7-18) 07/10/19 08:54 Creatinine 0.9 mg/dL (0.55-1.3) 07/10/19 08:54 Random Glucose 99 mg/dL (74-106) 07/10/19 08:54 Calcium 8.9 mg/dL (8.5-10.1) 07/10/19 08:54 Labs noted. Assessment: 07/13/19 11:07 AOX3, in no acute respiratory distress. Full rom, ambulating in the unit. mild withdrawal symptoms. Plan: continue detox.
[2019-07-13] MEDS: NICOTINE POLACRILEX 2 MG GUM BUC PRN (13:23)
[2019-07-13] MEDS: THIAMINE HCL 100 MG TABLET (FP) PO SCH (22:17)
[2019-07-13] MEDS: MELATONIN 5 MG TABLETS PO PRN (22:17)
[2019-07-14] MEDS: METHOCARBAMOL 500 MG TABLET PO PRN (05:50)
[2019-07-14] MEDS ORDERED: METHADONE HCL 5 MG TABLET (FOR DETOX USE ONLY) PO ONE (06:00)
[2019-07-14] MEDS: NICOTINE POLACRILEX 2 MG GUM BUC PRN (08:40)
[2019-07-14 09:05] VITALS: BP 104/72; PULSE 72; TEMP 98.5
--- NOTE | 2019-07-14 10:42 | DS ---
[facility] Detox Discharge Summary Admission Date: 07/09/19 Discharge Date: 07/14/19 - History Present History: Opioid Dependence Additional Comments: 49 years old male admitted on 07/09/19 for opiate withdrawal sx management treated with methadone detox regimen patient tolerated well patient is alert oriented x 3 respiratory clear lung bilaterally on auscultation strong recommend cigarette smoking cessation skin warm and dry abdomen soft no rebound tenderness - Physical Exam Results Vital Signs: Vital Signs Temperature 98.5 F 07/14/19 09:05 Pulse Rate 72 07/14/19 09:05 Respiratory Rate 18 07/14/19 09:05 Blood Pressure 104/72 07/14/19 09:05 O2 Sat by Pulse Oximetry (%) Pertinent Admission Physical Exam Findings: opiate withdrawal sx Laboratory Last Values WBC 5.0 K/mm3 (4.0-10.0) 07/10/19 08:54 RBC 4.22 M/mm3 (4.00-5.60) 07/10/19 08:54 Hgb 13.3 GM/dL (11.7-16.9) 07/10/19 08:54 Hct 39.4 % (35.4-49) 07/10/19 08:54 MCV 93.3 fl (80-96) 07/10/19 08:54 MCH 31.5 pg (25.7-33.7) D 07/10/19 08:54 MCHC 33.8 g/dl (32.0-35.9) 07/10/19 08:54 RDW 14.5 % (11.9-15.9) D 07/10/19 08:54 Plt Count 274 K/MM3 (134-434) 07/10/19 08:54 MPV 8.5 fl (7.5-11.1) 07/10/19 08:54 Sodium 141 mmol/L (136-145) 07/10/19 08:54 Potassium 4.5 mmol/L (3.5-5.1) 07/10/19 08:54 Chloride 109 mmol/L (98-107) H 07/10/19 08:54 Carbon Dioxide 27 mmol/L (21-32) 07/10/19 08:54 Anion Gap 4 MMOL/L (8-16) L 07/10/19 08:54 BUN 14.0 mg/dL (7-18) 07/10/19 08:54 Creatinine 0.9 mg/dL (0.55-1.3) 07/10/19 08:54 Est GFR (CKD-EPI)AfAm 115.83 07/10/19 08:54 Est GFR (CKD-EPI)NonAf 99.94 07/10/19 08:54 Random Glucose 99 mg/dL (74-106) 07/10/19 08:54 Calcium 8.9 mg/dL (8.5-10.1) 07/10/19 08:54 Total Bilirubin 0.4 mg/dL (0.2-1) 07/10/19 08:54 AST 41 U/L (15-37) H 07/10/19 08:54 ALT 64 U/L (13-61) H 07/10/19 08:54 Alkaline Phosphatase 94 U/L (45-117) 07/10/19 08:54 Total Protein 6.8 g/dl (6.4-8.2) 07/10/19 08:54 Albumin 3.3 g/dl (3.4-5.0) L 07/10/19 08:54 RPR Titer Nonreactive (NONREACTIVE) 07/10/19 08:54 lab noted - Treatment Hospital Course: Detox Protocol Followed, Detoxed Safely, Responded well, Discharged Condition Good, Rehab Referral Accepted Patient has Accepted a Rehab Referral to: community support approach - Medication Discharge Medications: Ambulatory Orders Naloxone HCl [Narcan] 4 mg NS ASDIR PRN #1 spray 07/10/19 Aripiprazole [Abilify -] 5 mg PO DAILY #30 tablet 07/12/19 Citalopram Hydrobromide [Celexa -] 10 mg PO DAILY #30 tablet 07/12/19 - Diagnosis (1) Opioid dependence with withdrawal Current Visit: Yes Status: Acute (2) Nicotine dependence Current Visit: Yes Status: Acute Qualifiers: Nicotine product type: cigarettes Substance use status: in withdrawal Qualified Code(s): F17.213 - Nicotine dependence, cigarettes, with withdrawal (3) Substance induced mood disorder Current Visit: Yes Status: Suspected - AMA Did Patient Leave Against Medical Advice: No COWS (PN) - Opiate Withdrawal Resting Pulse: 0= [place] 80 or Below Sweatin= No chills or Flushing Restless Observation: 0= Sits Still Pupil Size: 0= Normal to Room Light Bone or Joint Aches: 0= None Runny Nose/ Eye Tearin= None GI Upset > 30mins: 0= None Tremor Observation of Outstretched Hands: 0= None Yawning Observation: 0= None Anxiety or Irritability: 1=Feels Anxious/Irritable Goose Flesh Skin: 0=Smooth Skin COWS Score: 1
== END 2019-07-14 10:53 | disposition home or self-care (01) | DRG 897 ==
LOC: YASAS 19:30 → Y3N 23:52
PROVIDERS: ADMIT Allergy & Immunology; ATTEND Allergy & Immunology
PROC: HZ2ZZZZ Detoxification Services for Substance Abuse Treatment (ICD-10-PCS; principal; 2019-07-09)
DX: F11.23 Opioid dependence with withdrawal (principal); F13.20 Sedative, hypnotic or anxiolytic dependence, uncomplicated; F10.20 Alcohol dependence, uncomplicated; F12.20 Cannabis dependence, uncomplicated; F17.210 Nicotine dependence, cigarettes, uncomplicated; F19.24 Other psychoactive substance dependence with psychoactive substance-induced mood disorder; F39 Unspecified mood [affective] disorder; Z96.642 Presence of left artificial hip joint; Z91.19 Patient's noncompliance with other medical treatment and regimen
CPT/HCPCS: 36415; 80053; 85027; 86593; 93005; 93010; J0735

== ENCOUNTER 2019-09-16 18:49 | Inpatient (IN) | payer OTHER ==
[2019-09-16 19:39] VITALS: BMI 21.3
[2019-09-16] MEDS ORDERED: chlordiazePOXIDE HCL 25 MG CAPSULE PO SCH (23:00)
--- NOTE | 2019-09-16 23:15 | HP ---
COWS - Scale Resting Pulse: 0= [place] 80 or Below Sweatin=Flushed/Facial Moisture Restless Observation: 1= Difficult to Sit Still Pupil Size: 1= Pupils >than Normal Bone or Joint Aches: 4=Acute Joint/Muscle Pain Runny Nose/ Eye Tearin= Nasal Congestion GI Upset > 30mins: 1= Stomach Cramp Tremor Observation: 4= Gross Tremor/Twitching Yawning Observation: 1= 1-2x During Session Anxiety or Irritability: 2=Irritable/Anxious Goose Flesh Skin: 3=Piloerection COWS Score: 20 CIWA Score - Admission Criteria OASAS Guidelines: Admission for Medically Managed Detox: Requires at least one of the followin. CIWA greater than 12 2. Seizures within the past 24 hours 3. Delirium tremens within the past 24 hours 4. Hallucinations within the past 24 hours 5. Acute intervention needed for co occurring medical disorder 6. Acute intervention needed for co occurring psychiatric disorder 7. Severe withdrawal that cannot be handled at a lower level of care (continued vomiting, continued diarrhea, abnormal vital signs) requiring intravenous medication and/or fluids 8. Admitting History and Physical - Smoking History Smoking history: Current every day smoker Have you smoked in the past 12 months: Yes Aproximately how many cigarettes per day: 20 - Alcohol/Substance Use Hx Alcohol Use: Yes Admission ROS [facility] Chief Complaint: Heroin withdrawal symptoms Allergies/Adverse Reactions: Allergies Allergy/AdvReac Type Severity Reaction Status Date / Time No Known Allergies Allergy Verified 07/19/18 15:32 History of Present Illness: 49 years old male with 26 years history of heroin dependence is seeking admission to detox. Patient reports that his last admission was for the period 07/09/2019 - 07/14/2019 at [facility]. Patient reports insignificant period of sobriety. He denies medical history and reports psych. history of Bipolar disorder. He denies suicidal ideation at this time. Exam Limitations: No Limitations - Ebola screening Have you traveled outside of the country in the last 21 days: No (N) Have you had contact with anyone from an Ebola affected area: No Do you have a fever: No - Review of Systems Constitutional: Chills EENT: reports: No Symptoms Reported Respiratory: reports: No Symptoms reported Cardiac: reports: No Symptoms Reported GI: reports: Nausea, Poor Appetite, Poor Fluid Intake, Abdominal cramping Musculoskeletal: reports: Joint Pain, Muscle Pain Integumentary: reports: Dryness, Flushing Neuro: reports: Tremors Endocrine: reports: No Symptoms Reported Hematology: reports: No Symptoms Reported Psychiatric: reports: Mood/Affect Appropiate, Orientated x3 Other Systems: Reviewed and Negative Patient History - Patient Medical History Hx Anemia: No Hx Asthma: No Hx Chronic Obstructive Pulmonary Disease (COPD): No Hx Cancer: No Hx Cardiac Disorders: No Hx Congestive Heart Failure: No Hx Hypertension: No Hx Hypercholesterolemia: No Hx Pacemaker: No HX Cerebrovascular Accident: No Hx Seizures: No Hx Dementia: No Hx Diabetes: No Hx Gastrointestinal Disorders: No Hx Liver Disease: No Hx Genitourinary Disorders: No Hx Sexually Transmitted Disorders: No Hx Renal Disease (ESRD): No Hx Thyroid Disease: No Hx Human Immunodeficiency Virus (HIV): No (Negative 2019) Hx Hepatitis C: No Hx Depression: No Hx Suicide Attempt: No (Denies suicidal ideation at this time) Hx Bipolar Disorder: Yes (Abilify and Zyprexa) Hx Schizophrenia: No - Patient Surgical History Past Surgical History: Yes Hx Neurologic Surgery: No Hx Cataract Extraction: No Hx Cardiac Surgery: No Hx Lung Surgery: No Hx Abdominal Surgery: No Hx Appendectomy: No Hx Cholecystectomy: No Hx Genitourinary Surgery: No Hx Orthopedic Surgery: Yes (LEFT HIP REPLACEMENT 2014) Anesthesia Reaction: No - PPD History Previous Implant?: Yes Documented Results: Negative w/proof Implanted On Prior [facility] Admission?: Yes Date: 07/11/19 PPD to be Administered?: No - Reproductive History Patient is a Female of Child Bearing Age (11 -55 yrs old): No (male) - Smoking Cessation Smoking history: Current every day smoker Have you smoked in the past 12 months: Yes Aproximately how many cigarettes per day: 20 Hx Chewing Tobacco Use: No Initiated information on smoking cessation: Yes 'Breaking Loose' booklet given: 09/16/19 - Substance & Tx. History Hx Alcohol Use: No Hx Substance Use: Yes Substance Use Type: Heroin Hx Substance Use Treatment: Yes ([facility]) - Substances abused Heroin Substance route: Injection Frequency: Daily Amount used: 1 bundle/day Age of first use: 23 Date of last use: 09/16/19 Alcohol Amount used: couple of pints of vodka,12 beers. Alprazolam (Xanax) Substance route: Oral Frequency: Daily Amount used: 2 0f 2 mg Age of first use: 28 Date of last use: 09/14/19 Admission Physical Exam [facility] - Vital Signs Vital Signs: Vital Signs - 24 hr 09/16/19 19:33 Temperature 98.9 F Pulse Rate 75 Respiratory 16 Rate Blood Pressure 122/77 - Physical General Appearance: Yes: Moderate Distress, Tremorous HEENTM: Yes: Within Normal Limits Respiratory: Yes: Lungs Clear, Normal Breath Sounds, No Respiratory Distress Neck: Yes: Within Normal Limits Breast: Yes: Breast Exam Deferred Cardiology: Yes: Regular Rhythm, Regular Rate Abdominal: Yes: Normal Bowel Sounds, Soft Genitourinary: Yes: Within Normal Limits Back: Yes: Normal Inspection Musculoskeletal: Yes: Within Normal Limits Extremities: Yes: Normal Inspection Neurological: Yes: Within Normal Limits Integumentary: Yes: Warm Lymphatic: Yes: Within Normal Limits - Diagnostic (1) Nicotine dependence Current Visit: Yes Status: Chronic Qualifiers: Nicotine product type: cigarettes Substance use status: in withdrawal Qualified Code(s): F17.213 - Nicotine dependence, cigarettes, with withdrawal (2) Opioid dependence with withdrawal Current Visit: Yes Status: Acute Cleared for Admission [facility] - Detox or Rehab [facility] Level of Care: Medically Managed Detox Regimen/Protocol: Methadone Breathalyzer - Breathalyzer Breathalyzer: 0 Urine Drug Screen - Test Device Lot number: [id number] Expiration date: 04/03/21 - Control Is test valid?: Yes - Results Drug screen NEGATIVE: No Urine drug screen results: MOP-Opiates, BUP-Suboxone Inpatient Rehab Admission - Rehab Decision to Admit Inpatient rehab admission?: No
[2019-09-16] MEDS ORDERED: hydrOXYzine PAMOATE 25 MG CAPSULE (FP) PO PRN (23:33)
[2019-09-16] MEDS ORDERED: MENTHOL/PHENOL 1 EACH UD MM PRN (23:33)
[2019-09-16] MEDS ORDERED: NICOTINE POLACRILEX 2 MG GUM BUC PRN (23:33)
[2019-09-16] MEDS ORDERED: MELATONIN 5 MG TABLETS PO PRN (23:33)
[2019-09-16] MEDS ORDERED: MAGNESIUM CITRATE 300 ML BOTTLE PO PRN (23:33)
[2019-09-16] MEDS ORDERED: IBUPROFEN 400 MG TABLET (FP) PO PRN (23:33)
[2019-09-16] MEDS ORDERED: BISMUTH SUBSALICYLATE 524 MG/30 ML UD PO PRN (23:33)
[2019-09-16] MEDS ORDERED: METHOCARBAMOL 500 MG TABLET PO PRN (23:33)
[2019-09-16] MEDS ORDERED: ACETAMINOPHEN 325 MG TABLET (FP) PO PRN ×2 (23:33)
[2019-09-16] MEDS ORDERED: MAGNESIUM HYDROX 2400MG/30ML ORAL SUSPENSION 30 ML CUP PO PRN (23:33)
[2019-09-16] MEDS ORDERED: chlordiazePOXIDE HCL 25 MG CAPSULE PO PRN (23:33)
[2019-09-16] MEDS ORDERED: MAG HYDROX/AL HYDROX/SIMETH 30 ML UNIT-DOSE CUP PO PRN (23:33)
[2019-09-16] MEDS ORDERED: cloNIDine HCL 0.1 MG TABLET PO PRN (23:41)
[2019-09-16] MEDS ORDERED: METHADONE HCL 10 MG TABLET (FOR DETOX USE ONLY) PO ONE (23:51)
--- NOTE | 2019-09-17 08:48 | CONSULT ---
[facility] Psychiatric Consult - Data Date of interview: 09/17/19 Admission source: Self-referred Identifying data: Mr Romano is a 49 years old male, father of 2 children, unemployed receiving SSD, domiciled seeking detox treatment for opioid and benzodiazepine Substance Abuse History: Reports history of heroin and xanax use. Refer to addiction counselor's summary for further information Medical History: Significant for hepatitis C (not treated) and orthosurgery for left hip replacement in 2014. Smokes cigarettes 1 ppd Psychiatric History: Patient is known to this facility from two previous admissions. Historical narative remains consistent. He reports being diagnosed with Bipolar Disorder in 1997 and PTSD in 2011. Reports multiple previous psychiatric hospitalizations at various facilities including [facility], [facility], [place], [facility] and most recently in 2018 at [facility]. He is not currently receiving outpatient psychiatric treatment and has a history of non adherence to OPD care and medications. During his most recent admission to this facility, he saw Dr Payan on 07/10/19 and he was prescribed Celexa 10 mg/day and Abilify 5 mg/day. 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 Denies experiencing psychotic, manic or depressive symptoms, S/ H ideations. However, reports feeling anxious and sleeping poorly. Requests to resume Celexa and Abilify as previous prescribed at last admission Physical/Sexual Abuse/Trauma History: Reportedly served three years in the [employer]. Saw combat in [place] in [facility]. Discharge status : not disclosed by the patient. Mental Status Exam - Mental Status Exam Alert and Oriented to: Time, Place, Person Cognitive Function: Fair Patient Appearance: Well Groomed Mood: Anxious Affect: Appropriate Patient Behavior: Cooperative Speech Pattern: Clear Voice Loudness: Normal Thought Process: Intact, Goal Oriented Thought Disorder: Not Present Hallucinations: Denies Suicidal Ideation: Denies Homicidal Ideation: Denies Insight/Judgement: Poor Sleep: Poorly Appetite: Fair Muscle strength/Tone: Normal Gait/Station: Normal Psychiatric Findings - Problem List ([place] 1, 2,3) (1) Mood disorder Current Visit: No Status: Chronic (2) Bipolar disorder Current Visit: Yes Status: Ruled-out (3) PTSD (post-traumatic stress disorder) Current Visit: Yes Status: Ruled-out (4) Substance-induced anxiety disorder Current Visit: Yes Status: Acute (5) Substance-induced sleep disorder Current Visit: No Status: Acute (6) Opioid dependence with withdrawal Current Visit: Yes Status: Acute (7) Sedative, hypnotic or anxiolytic abuse Current Visit: Yes Status: Acute (8) Nicotine dependence Current Visit: Yes Status: Chronic Qualifiers: Nicotine product type: cigarettes Substance use status: in withdrawal Qualified Code(s): F17.213 - Nicotine dependence, cigarettes, with withdrawal (9) History of left hip replacement Current Visit: Yes Status: Resolved - Initial Treatment Plan Initial Treatment Plan: 1) Resume Celexa 10 mg po daily and Abilify 5 mg po daily. 2) Continue inpatient detoxification
[2019-09-17] MEDS ORDERED: METHADONE HCL 10 MG TABLET (FOR DETOX USE ONLY) ONE (09:00)
[2019-09-17] MEDS ORDERED: METHADONE HCL 5 MG TABLET (FOR DETOX USE ONLY) ONE (09:00)
[2019-09-17 09:46] LABS: HEMATOCRIT 37.1 % (35.4-49); HEMOGLOBIN 12.5 GM/dL (11.7-16.9); MCH 30.2 pg (25.7-33.7); MCHC 33.5 g/dl (32.0-35.9); MEAN CELL VOLUME 90.1 fl (80-96); MEAN PLT VOLUME 9.2 fl (7.5-11.1); PLATELET COUNT 208 K/MM3 (134-434); RBC 4.12 M/mm3 (4.00-5.60); RDW 14.9 % (11.9-15.9); WHITE BLOOD COUNT 4.7 K/mm3 (4.0-10.0)
[2019-09-17] MEDS ORDERED: METHADONE (DETOX) 20 MG, METHADONE (DETOX) 5 MG PO ONE (10:00)
[2019-09-17 10:16] LABS: BILIRUBIN,TOTAL 0.2 mg/dL (0.2-1); BLOOD UREA NITROGEN 17.6 mg/dL (7-18); CALCIUM 8.5 mg/dL (8.5-10.1); CREATININE 0.7 mg/dL (0.55-1.3); POTASSIUM 4.4 mmol/L (3.5-5.1); TOT PROT 6.1 g/dl (6.4-8.2)
[2019-09-17] MEDS: CITALOPRAM HYDROBROMIDE 10 MG TABLET PO SCH (10:22)
[2019-09-17] MEDS: ARIPiprazole 5 MG TABLET PO SCH (10:22)
[2019-09-17] MEDS: NICOTINE 21 MG/24 HOURS TOPICAL PATCH TD SCH (10:22)
[2019-09-17] MEDS: PRENATAL VITAMINS W/ FOLIC ACID TABLET (FP) PO SCH (10:23)
--- NOTE | 2019-09-17 10:52 | PN ---
[facility] COWS - Scale Resting Pulse: 0= [place] 80 or Below Sweatin= Chills/Flushing Restless Observation: 1= Difficult to Sit Still Pupil Size: 1= Pupils >than Normal Bone or Joint Aches: 1= Mild Discomfort Runny Nose/ Eye Tearin= Nasal Congestion GI Upset > 30mins: 1= Stomach Cramp Tremor Observation of Outstretched Hands: 2= Slight Tremor Visible Yawning Observation: 1= 1-2x During Session Anxiety or Irritability: 2=Irritable/Anxious Goose Flesh Skin: 0=Smooth Skin COWS Score: 11 [facility] Progress Note (SOAP) Subjective: alert,irritable,anxious,interrupted sleep,pain in the body and back,nausea Objective: 09/17/19 10:51 Vital Signs Temperature 96 F L 09/17/19 06:00 Pulse Rate 60 09/17/19 06:00 Respiratory Rate 18 09/17/19 06:00 Blood Pressure 100/62 09/17/19 06:00 O2 Sat by Pulse Oximetry (%) 09/17/19 10:52 Laboratory Last Values WBC 4.7 K/mm3 (4.0-10.0) 09/17/19 07:20 RBC 4.12 M/mm3 (4.00-5.60) 09/17/19 07:20 Hgb 12.5 GM/dL (11.7-16.9) 09/17/19 07:20 Hct 37.1 % (35.4-49) 09/17/19 07:20 MCV 90.1 fl (80-96) 09/17/19 07:20 MCH 30.2 pg (25.7-33.7) 09/17/19 07:20 MCHC 33.5 g/dl (32.0-35.9) 09/17/19 07:20 RDW 14.9 % (11.9-15.9) 09/17/19 07:20 Plt Count 208 K/MM3 (134-434) D 09/17/19 07:20 MPV 9.2 fl (7.5-11.1) 09/17/19 07:20 Sodium 140 mmol/L (136-145) 09/17/19 07:20 Potassium 4.4 mmol/L (3.5-5.1) 09/17/19 07:20 Chloride 109 mmol/L (98-107) H 09/17/19 07:20 Carbon Dioxide 28 mmol/L (21-32) 09/17/19 07:20 Anion Gap 4 MMOL/L (8-16) L 09/17/19 07:20 BUN 17.6 mg/dL (7-18) 09/17/19 07:20 Creatinine 0.7 mg/dL (0.55-1.3) 09/17/19 07:20 Est GFR (CKD-EPI)AfAm 128.43 09/17/19 07:20 Est GFR (CKD-EPI)NonAf 110.81 09/17/19 07:20 Random Glucose 88 mg/dL (74-106) 09/17/19 07:20 Calcium 8.5 mg/dL (8.5-10.1) 09/17/19 07:20 Total Bilirubin 0.2 mg/dL (0.2-1) 09/17/19 07:20 AST 30 U/L (15-37) 09/17/19 07:20 ALT 38 U/L (13-61) 09/17/19 07:20 Alkaline Phosphatase 97 U/L (45-117) 09/17/19 07:20 Total Protein 6.1 g/dl (6.4-8.2) L 09/17/19 07:20 Albumin 3.0 g/dl (3.4-5.0) L 09/17/19 07:20 RPR Titer Nonreactive (NONREACTIVE) 09/17/19 07:20 Assessment: 09/17/19 10:52 withdrawal symptom Plan: continue detox methadone regimen, to add valium 10 mgs po q 4hrs prn for 72 hrs
[2019-09-17] MEDS: diazePAM 5 MG TABLET PO PRN (20:05)
[2019-09-17] MEDS: THIAMINE HCL 100 MG TABLET (FP) PO SCH (22:17)
[2019-09-18] MEDS: diazePAM 5 MG TABLET PO PRN ×5 (00:43→20:18)
[2019-09-18] MEDS ORDERED: chlordiazePOXIDE HCL 25 MG CAPSULE PO SCH (05:00)
[2019-09-18] MEDS ORDERED: METHADONE HCL 10 MG TABLET (FOR DETOX USE ONLY) PO ONE (10:00)
[2019-09-18] MEDS: CITALOPRAM HYDROBROMIDE 10 MG TABLET PO SCH (10:59)
[2019-09-18] MEDS: PRENATAL VITAMINS W/ FOLIC ACID TABLET (FP) PO SCH (10:59)
[2019-09-18] MEDS: NICOTINE 21 MG/24 HOURS TOPICAL PATCH TD SCH (10:59)
[2019-09-18] MEDS: ARIPiprazole 5 MG TABLET PO SCH (10:59)
--- NOTE | 2019-09-18 14:10 | PN ---
S COWS - Scale Resting Pulse: 2= [place] 101-120 Sweatin= No chills or Flushing Restless Observation: 1= Difficult to Sit Still Pupil Size: 1= Pupils >than Normal Bone or Joint Aches: 1= Mild Discomfort Runny Nose/ Eye Tearin= Nasal Congestion GI Upset > 30mins: 1= Stomach Cramp Tremor Observation of Outstretched Hands: 1= Tremor [place], Not Seen Yawning Observation: 1= 1-2x During Session Anxiety or Irritability: 2=Irritable/Anxious Goose Flesh Skin: 0=Smooth Skin COWS Score: 11 [facility] Progress Note (SOAP) Subjective: alert,irritable,anxious,interrupted sleep,pain in the body and back Objective: 09/18/19 14:09 Vital Signs Temperature 98.2 F 09/18/19 10:00 Pulse Rate 69 09/18/19 10:00 Respiratory Rate 18 09/18/19 10:00 Blood Pressure 98/62 09/18/19 10:00 O2 Sat by Pulse Oximetry (%) 09/18/19 14:10 Laboratory Last Values WBC 4.7 K/mm3 (4.0-10.0) 09/17/19 07:20 RBC 4.12 M/mm3 (4.00-5.60) 09/17/19 07:20 Hgb 12.5 GM/dL (11.7-16.9) 09/17/19 07:20 Hct 37.1 % (35.4-49) 09/17/19 07:20 MCV 90.1 fl (80-96) 09/17/19 07:20 MCH 30.2 pg (25.7-33.7) 09/17/19 07:20 MCHC 33.5 g/dl (32.0-35.9) 09/17/19 07:20 RDW 14.9 % (11.9-15.9) 09/17/19 07:20 Plt Count 208 K/MM3 (134-434) D 09/17/19 07:20 MPV 9.2 fl (7.5-11.1) 09/17/19 07:20 Sodium 140 mmol/L (136-145) 09/17/19 07:20 Potassium 4.4 mmol/L (3.5-5.1) 09/17/19 07:20 Chloride 109 mmol/L (98-107) H 09/17/19 07:20 Carbon Dioxide 28 mmol/L (21-32) 09/17/19 07:20 Anion Gap 4 MMOL/L (8-16) L 09/17/19 07:20 BUN 17.6 mg/dL (7-18) 09/17/19 07:20 Creatinine 0.7 mg/dL (0.55-1.3) 09/17/19 07:20 Est GFR (CKD-EPI)AfAm 128.43 09/17/19 07:20 Est GFR (CKD-EPI)NonAf 110.81 09/17/19 07:20 Random Glucose 88 mg/dL (74-106) 09/17/19 07:20 Calcium 8.5 mg/dL (8.5-10.1) 09/17/19 07:20 Total Bilirubin 0.2 mg/dL (0.2-1) 09/17/19 07:20 AST 30 U/L (15-37) 09/17/19 07:20 ALT 38 U/L (13-61) 09/17/19 07:20 Alkaline Phosphatase 97 U/L (45-117) 09/17/19 07:20 Total Protein 6.1 g/dl (6.4-8.2) L 09/17/19 07:20 Albumin 3.0 g/dl (3.4-5.0) L 09/17/19 07:20 RPR Titer Nonreactive (NONREACTIVE) 09/17/19 07:20 Assessment: 09/18/19 14:10 withdrawal symptom Plan: continue detox ,methadone regimen and prn valium
[2019-09-18] MEDS: THIAMINE HCL 100 MG TABLET (FP) PO SCH (22:18)
[2019-09-19] MEDS ORDERED: chlordiazePOXIDE HCL 10 MG CAPSULE PO PRN
[2019-09-19] MEDS: diazePAM 5 MG TABLET PO PRN ×5 (02:29→20:13)
[2019-09-19] MEDS ORDERED: chlordiazePOXIDE HCL 10 MG CAPSULE PO SCH (05:00)
[2019-09-19] MEDS ORDERED: METHADONE HCL 5 MG TABLET (FOR DETOX USE ONLY) ONE (09:23)
[2019-09-19] MEDS ORDERED: METHADONE HCL 10 MG TABLET (FOR DETOX USE ONLY) ONE (09:24)
[2019-09-19] MEDS ORDERED: METHADONE (DETOX) 10 MG, METHADONE (DETOX) 5 MG PO ONE (10:00)
--- NOTE | 2019-09-19 11:00 | PN ---
[facility]HS Progress Note (SOAP) Subjective: Patient is a 49 yo male with hx of heroin dependence is here on methadone detox protocol c/o anxious, interrupted sleep, chills Objective: 09/19/19 11:00 Vital Signs Temperature 97.5 F L 09/19/19 09:55 Pulse Rate 80 09/19/19 09:55 Respiratory Rate 17 09/19/19 09:55 Blood Pressure 101/62 09/19/19 09:55 O2 Sat by Pulse Oximetry (%) 09/19/19 11:00 Laboratory Last Values WBC 4.7 K/mm3 (4.0-10.0) 09/17/19 07:20 RBC 4.12 M/mm3 (4.00-5.60) 09/17/19 07:20 Hgb 12.5 GM/dL (11.7-16.9) 09/17/19 07:20 Hct 37.1 % (35.4-49) 09/17/19 07:20 MCV 90.1 fl (80-96) 09/17/19 07:20 MCH 30.2 pg (25.7-33.7) 09/17/19 07:20 MCHC 33.5 g/dl (32.0-35.9) 09/17/19 07:20 RDW 14.9 % (11.9-15.9) 09/17/19 07:20 Plt Count 208 K/MM3 (134-434) D 09/17/19 07:20 MPV 9.2 fl (7.5-11.1) 09/17/19 07:20 Sodium 140 mmol/L (136-145) 09/17/19 07:20 Potassium 4.4 mmol/L (3.5-5.1) 09/17/19 07:20 Chloride 109 mmol/L (98-107) H 09/17/19 07:20 Carbon Dioxide 28 mmol/L (21-32) 09/17/19 07:20 Anion Gap 4 MMOL/L (8-16) L 09/17/19 07:20 BUN 17.6 mg/dL (7-18) 09/17/19 07:20 Creatinine 0.7 mg/dL (0.55-1.3) 09/17/19 07:20 Est GFR (CKD-EPI)AfAm 128.43 09/17/19 07:20 Est GFR (CKD-EPI)NonAf 110.81 09/17/19 07:20 Random Glucose 88 mg/dL (74-106) 09/17/19 07:20 Calcium 8.5 mg/dL (8.5-10.1) 09/17/19 07:20 Total Bilirubin 0.2 mg/dL (0.2-1) 09/17/19 07:20 AST 30 U/L (15-37) 09/17/19 07:20 ALT 38 U/L (13-61) 09/17/19 07:20 Alkaline Phosphatase 97 U/L (45-117) 09/17/19 07:20 Total Protein 6.1 g/dl (6.4-8.2) L 09/17/19 07:20 Albumin 3.0 g/dl (3.4-5.0) L 09/17/19 07:20 RPR Titer Nonreactive (NONREACTIVE) 09/17/19 07:20 labs reviewed Assessment: 09/19/19 11:01 Aox3 no acute distress full ROM abating in the unit withdrawal sx Plan: increase fluids continue detox continue to monitor
[2019-09-19] MEDS: CITALOPRAM HYDROBROMIDE 10 MG TABLET PO SCH (11:10)
[2019-09-19] MEDS: NICOTINE 21 MG/24 HOURS TOPICAL PATCH TD SCH (11:10)
[2019-09-19] MEDS: PRENATAL VITAMINS W/ FOLIC ACID TABLET (FP) PO SCH (11:10)
[2019-09-19] MEDS: ARIPiprazole 5 MG TABLET PO SCH (11:11)
[2019-09-19] MEDS: THIAMINE HCL 100 MG TABLET (FP) PO SCH (23:10)
[2019-09-20] MEDS ORDERED: chlordiazePOXIDE HCL 10 MG CAPSULE PO SCH (05:00)
[2019-09-20] MEDS: diazePAM 5 MG TABLET PO PRN ×2 (05:10→10:20)
[2019-09-20] MEDS ORDERED: METHADONE HCL 10 MG TABLET (FOR DETOX USE ONLY) PO ONE (10:00)
[2019-09-20] MEDS: ARIPiprazole 5 MG TABLET PO SCH (10:18)
[2019-09-20] MEDS: PRENATAL VITAMINS W/ FOLIC ACID TABLET (FP) PO SCH (10:18)
[2019-09-20] MEDS: NICOTINE 21 MG/24 HOURS TOPICAL PATCH TD SCH (10:18)
[2019-09-20] MEDS: CITALOPRAM HYDROBROMIDE 10 MG TABLET PO SCH (10:18)
--- NOTE | 2019-09-20 11:02 | PN ---
BHS COWS - Scale Resting Pulse: 1= [place] 81-100 Sweatin= Chills/Flushing Restless Observation: 0= Sits Still Pupil Size: 0= Normal to Room Light Bone or Joint Aches: 1= Mild Discomfort Runny Nose/ Eye Tearin= None GI Upset > 30mins: 0= None Tremor Observation of Outstretched Hands: 0= None Yawning Observation: 0= None Anxiety or Irritability: 1=Feels Anxious/Irritable Goose Flesh Skin: 0=Smooth Skin COWS Score: 4 [facility] Progress Note (SOAP) Subjective: sweats Objective: 09/20/19 11:01 Vital Signs Temperature 97.9 F 09/20/19 09:28 Pulse Rate 85 09/20/19 09:28 Respiratory Rate 17 09/20/19 09:28 Blood Pressure 127/63 09/20/19 09:28 O2 Sat by Pulse Oximetry (%) Laboratory Tests 09/17/19 09/17/19 09/17/19 07:20 07:20 07:20 WBC 4.7 RBC 4.12 Hgb 12.5 Hct 37.1 MCV 90.1 MCH 30.2 MCHC 33.5 RDW 14.9 Plt Count 208 D MPV 9.2 Sodium 140 Potassium 4.4 Chloride 109 H Carbon Dioxide 28 Anion Gap 4 L BUN 17.6 Creatinine 0.7 Est GFR (CKD-EPI)AfAm 128.43 Est GFR (CKD-EPI)NonAf 110.81 Random Glucose 88 Calcium 8.5 Total Bilirubin 0.2 AST 30 ALT 38 Alkaline Phosphatase 97 Total Protein 6.1 L Albumin 3.0 L RPR Titer Nonreactive aaox3 ambulating no acute distress Assessment: 09/20/19 11:02 mild withdrawals Plan: increase fluids d/c in am
[2019-09-20] MEDS: THIAMINE HCL 100 MG TABLET (FP) PO SCH (22:22)
[2019-09-21] MEDS ORDERED: chlordiazePOXIDE HCL 10 MG CAPSULE PO ONE (05:00)
[2019-09-21] MEDS ORDERED: METHADONE HCL 5 MG TABLET (FOR DETOX USE ONLY) PO ONE (06:00)
[2019-09-21 07:24] VITALS: TEMP 97.7
[2019-09-21 09:21] VITALS: BP 143/77; PULSE 78
[2019-09-21] MEDS: CITALOPRAM HYDROBROMIDE 10 MG TABLET PO SCH (09:55)
[2019-09-21] MEDS: ARIPiprazole 5 MG TABLET PO SCH (09:55)
[2019-09-21] MEDS: PRENATAL VITAMINS W/ FOLIC ACID TABLET (FP) PO SCH (09:55)
[2019-09-21] MEDS: NICOTINE 21 MG/24 HOURS TOPICAL PATCH TD SCH (09:56)
--- NOTE | 2019-09-21 18:05 | DS ---
[facility] Detox Discharge Summary Admission Date: 09/16/19 Discharge Date: 09/21/19 - History Present History: Opioid Dependence Additional Comments: PATIENT RETURNING HOME FOR TIME BEING, WILL LIKELY APPLY FOR ADMISSION AT [facility] OR AT [facility] IN NEXT FEW DAYS. PATIENT WAS DISCHARGED FROM DETOX UNIT IN STABLE MEDICAL CONDITION. Pertinent Past History: Bipolar Disorder, Nicotine Dependence, P.T.S.D., History of Left hip Replacement , History of Anxiety Disorder. - Physical Exam Results Vital Signs: Vital Signs Temperature 97.7 F 09/21/19 09:19 Pulse Rate 78 09/21/19 09:19 Respiratory Rate 18 09/21/19 09:19 Blood Pressure 143/77 09/21/19 09:19 O2 Sat by Pulse Oximetry (%) Pertinent Admission Physical Exam Findings: WITHDRAWAL SYMPTOMS. Laboratory Tests 09/17/19 09/17/19 09/17/19 07:20 07:20 07:20 WBC 4.7 RBC 4.12 Hgb 12.5 Hct 37.1 MCV 90.1 MCH 30.2 MCHC 33.5 RDW 14.9 Plt Count 208 D MPV 9.2 Sodium 140 Potassium 4.4 Chloride 109 H Carbon Dioxide 28 Anion Gap 4 L BUN 17.6 Creatinine 0.7 Est GFR (CKD-EPI)AfAm 128.43 Est GFR (CKD-EPI)NonAf 110.81 Random Glucose 88 Calcium 8.5 Total Bilirubin 0.2 AST 30 ALT 38 Alkaline Phosphatase 97 Total Protein 6.1 L Albumin 3.0 L RPR Titer Nonreactive LABS NOTED. - Treatment Hospital Course: Detox Protocol Followed, Detoxed Safely, Responded well, Discharged Condition Good Patient has Accepted a Rehab Referral to: PT WILL LIKELY APPLY TO [facility] OR [facility] IN NEXT DAYS. - Medication Discharge Medications: Ambulatory Orders Aripiprazole [Abilify -] 5 mg PO DAILY #30 tablet 07/12/19 Citalopram Hydrobromide [Celexa -] 10 mg PO DAILY #30 tablet 07/12/19 - Diagnosis (1) Opioid dependence with withdrawal Status: Acute (2) Sedative, hypnotic or anxiolytic abuse Status: Acute (3) Substance-induced anxiety disorder Status: Acute (4) Mood disorder Status: Chronic (5) Nicotine dependence Status: Chronic Qualifiers: Nicotine product type: cigarettes Substance use status: in withdrawal Qualified Code(s): F17.213 - Nicotine dependence, cigarettes, with withdrawal (6) Substance induced mood disorder Status: Suspected (7) History of left hip replacement Status: Resolved (8) Bipolar disorder Status: Ruled-out Qualifiers: Active/Remission status: remission status unspecified Qualified Code(s): F31.9 - Bipolar disorder, unspecified (9) PTSD (post-traumatic stress disorder) Status: Ruled-out - AMA Did Patient Leave Against Medical Advice: No
== END 2019-09-21 10:20 | disposition home or self-care (01) | DRG 897 ==
LOC: YASAS 18:49 → Y6N 23:46
PROVIDERS: ADMIT Allergy & Immunology; ATTEND Allergy & Immunology
PROC: HZ2ZZZZ Detoxification Services for Substance Abuse Treatment (ICD-10-PCS; principal; 2019-09-16)
DX: F11.23 Opioid dependence with withdrawal (principal); F19.280 Other psychoactive substance dependence with psychoactive substance-induced anxiety disorder; F19.282 Other psychoactive substance dependence with psychoactive substance-induced sleep disorder; F13.230 Sedative, hypnotic or anxiolytic dependence with withdrawal, uncomplicated; F17.213 Nicotine dependence, cigarettes, with withdrawal; F39 Unspecified mood [affective] disorder; F19.24 Other psychoactive substance dependence with psychoactive substance-induced mood disorder; B18.2 Chronic viral hepatitis C; Z96.642 Presence of left artificial hip joint
CPT/HCPCS: 36415; 80053; 85027; 86593